=== PATIENT | male | born 1960 | race Caucasian/White ===

== ENCOUNTER 2017-04-02 22:55 | Emergency (ER) | payer SELFPAY ==
[~2017-04-02] VITALS: Ht 175.3 cm; Wt 99.8 kg
[2017-04-02] MEDS ORDERED: IV NORMAL SALINE 1000ML BAG 1,000 ML IV ONE (23:15)
--- NOTE | 2017-04-02 23:20 | PHYS DOC ---
Past Medical History Past Medical History: Seizure Past Surgical History: Other Additional Past Surgical Histo: cartaegna Alcohol Use: None Drug Use: None Adult General Chief Complaint Chief Complaint: SEIZURE HPI HPI Patient is a 56 year old male who presents to the emergency department for evaluation after having a seizure episode at home. Patient was brought to the emergency department by EMS after family called. The patient reportedly had a tonic-clonic seizure which lasted a few minutes. On EMS arrival, the patient continued to be confused and was presumed to be in a postictal state. Patient brought to the emergency department for further evaluation. EMS states that the family reports the patient has not taken medications "for a while." Patient has reported history of seizure. The patient continues to be confused at this time and does not provide any additional history. Patient denies any pain at this time. The patient is unaware of where he is but is able to recognize that he is in a hospital. Review of Systems Review of Systems Constitutional: Denies fever or chills [] Eyes: Denies change in visual acuity, redness, or eye pain [] HENT: Denies nasal congestion or sore throat [] Respiratory: Denies cough or shortness of breath [] Cardiovascular: Denies chest pain or edema[] GI: Denies abdominal pain, nausea, vomiting, bloody stools or diarrhea [] : Denies dysuria or hematuria [] Musculoskeletal: Denies back pain or joint pain [] Integument: Denies rash or skin lesions [] Neurologic: Denies headache, focal weakness or sensory changes [] Current Medications Current Medications Current Medications Medications (Trade) Dose Ordered Sig/Jennifer Start Time Stop Time Status Last Admin Dose Admin Phenytoin Sodium (Dilantin) 400 mg 1X ONCE 04/03/17 02:30 04/03/17 02:31 DC Sodium Chloride 1,000 ml @ 1,000 mls/hr 1X ONCE 04/02/17 23:15 04/03/17 00:14 DC 04/02/17 23:56 1,000 MLS/HR Allergies Allergies Allergies Coded Allergies Type Severity Reaction Last Updated Verified No Known Drug Allergies 04/02/14 No Physical Exam Physical Exam Constitutional: Alert, confused, afebrile, no acute distress. [] HENT: Normocephalic, atraumatic, bilateral external ears normal, oropharynx moist, no oral exudates, nose normal. [] Eyes: PERRLA, EOMI, conjunctiva normal, no discharge. [] Neck: Normal range of motion, no tenderness, supple, no stridor. [] Cardiovascular:Heart rate regular rhythm, no murmur [] Lungs & Thorax: Bilateral breath sounds clear to auscultation [] Abdomen: Bowel sounds normal, soft, no tenderness, no masses, no pulsatile masses. [] Skin: Warm, dry, no erythema, no rash. [] Back: No tenderness, no CVA tenderness. [] Extremities: No tenderness, no cyanosis, no clubbing, ROM intact, no edema. [] Neurologic: Alert, oriented to self only, normal motor function, normal sensory function, no focal deficits noted. [] Current Patient Data Vital Signs Vital Signs Date Time Temp Pulse Resp B/P (MAP) Pulse Ox O2 Delivery O2 Flow Rate FiO2 04/03/17 02:50 75 14 103/54 (70) 94 Room Air 04/02/17 23:14 98.3 98.3 Lab Values Laboratory Tests Test 04/02/17 23:12 04/02/17 23:45 04/03/17 00:59 Glucose (Fingerstick) 120 mg/dL (70-99) H White Blood Count 9.2 x10^3/uL (4.0-11.0) Red Blood Count 5.64 x10^6/uL (4.30-5.70) Hemoglobin 14.6 g/dL (13.0-17.5) Hematocrit 45.7 % (39.0-53.0) Mean Corpuscular Volume 81 fL (79-100) Mean Corpuscular Hemoglobin 26 pg (25-35) Mean Corpuscular Hemoglobin Concent 32 g/dL (31-37) Red Cell Distribution Width 14.5 % (11.5-14.5) Platelet Count 238 x10^3/uL (140-400) Neutrophils (%) (Auto) 61 % (31-73) Lymphocytes (%) (Auto) 28 % (24-48) Monocytes (%) (Auto) 10 % (0-9) H Eosinophils (%) (Auto) 1 % (0-3) Basophils (%) (Auto) 1 % (0-3) Neutrophils # (Auto) 5.6 x10^3uL (1.8-7.7) Lymphocytes # (Auto) 2.6 x10^3/uL (1.0-4.8) Monocytes # (Auto) 0.9 x10^3/uL (0.0-1.1) Eosinophils # (Auto) 0.1 x10^3/uL (0.0-0.7) Basophils # (Auto) 0.0 x10^3/uL (0.0-0.2) Sodium Level 138 mmol/L (136-145) Potassium Level 4.4 mmol/L (3.5-5.1) Chloride Level 102 mmol/L (98-107) Carbon Dioxide Level 29 mmol/L (21-32) Anion Gap 7 (6-14) Blood Urea Nitrogen 18 mg/dL (8-26) Creatinine 1.0 mg/dL (0.7-1.3) Estimated GFR (Cockcroft-Gault) 77.6 BUN/Creatinine Ratio 18 (6-20) Glucose Level 124 mg/dL (70-99) H Calcium Level 9.2 mg/dL (8.5-10.1) Magnesium Level 2.0 mg/dL (1.8-2.4) Total Bilirubin 0.4 mg/dL (0.2-1.0) Aspartate Amino Transferase (AST) 71 U/L (15-37) H Alanine Aminotransferase (ALT) 53 U/L (16-63) Alkaline Phosphatase 86 U/L (46-116) Total Protein 7.4 g/dL (6.4-8.2) Albumin 3.3 g/dL (3.4-5.0) L Albumin/Globulin Ratio 0.8 (1.0-1.7) L Phenytoin (Dilantin) Level < 10.0 mcg/mL (10.0-20.0) L Phenytoin Last Dose Date 04/02/17 Phenytoin Last Dose Time 0700 Urine Collection Type Unknown Urine Color Yellow Urine Clarity Cloudy Urine pH 6.0 Urine Specific [place] 1.025 Urine Protein 100 mg/dL (NEG-TRACE) Urine Glucose (UA) Negative mg/dL (NEG) Urine Ketones (Stick) Negative mg/dL (NEG) Urine Blood Negative (NEG) Urine Nitrite Negative (NEG) Urine Bilirubin Negative (NEG) Urine Urobilinogen Dipstick 1.0 mg/dL (0.2 mg/dL) Urine Leukocyte Esterase Negative (NEG) Urine RBC Occ /HPF (0-2) Urine WBC Occ /HPF (0-4) Urine Squamous Epithelial Cells Few /LPF Urine Bacteria 0 /HPF (0-FEW) Urine Hyaline Casts Few /HPF Urine Mucus Mod /LPF Urine Opiates Screen Pos (NEG) Urine Methadone Screen Neg (NEG) Urine Barbiturates Neg (NEG) Urine Phencyclidine Screen Neg (NEG) Urine Amphetamine/Methamphetamine Neg (NEG) Urine Benzodiazepines Screen Neg (NEG) Urine Cocaine Screen Neg (NEG) Urine Cannabinoids Screen Pos (NEG) Urine Ethyl Alcohol Neg (NEG) Laboratory Tests 04/02/17 23:45 Laboratory Tests 04/02/17 23:45 EKG EKG Rhythm strip interpretation by me: Heart rate 82, sinus rhythm, no ectopy[] Radiology/Procedures Radiology/Procedures Not performed[] Course & Med Decision Making Course & Med Decision Making Pertinent Labs and Imaging studies reviewed. (See chart for details) Patient's blood work was reviewed and unremarkable. Patient did test positive for marijuana and opiates. Patient admitted to taking oxycodone tablets prior to his onset of symptoms. The patient's Dilantin level was found to be unmeasurable which is consistent with the patient's history of noncompliance with medications. Patient was given 400 mg of oral Dilantin in the emergency department. The patient was prescribed for a 30 day supply of Dilantin to continue at home. Recommended follow-up with patient's primary doctor in the next 5-7 days for reevaluation. Advised return emergency department for any worsening symptoms. Patient voiced understanding and in agreement with treatment plan. Dragon Disclaimer Dragon Disclaimer This electronic medical record was generated, in whole or in part, using a voice recognition dictation system. Departure Departure Impression: Primary Impression: Seizure Disposition: HOME, SELF-CARE Condition: IMPROVED Referrals: NON,STAFF (PCP) Patient Instructions: Seizure, Adult Additional Instructions: Follow-up with your primary doctor in 5-7 days for reevaluation. Return to emergency department for any worsening symptoms. Scripts Phenytoin Sodium Extended (PHENYTOIN SODIUM EXTENDED) 200 Mg Capsule 200 MG PO TID, #90 CAP Prov: JEFF GOLDSMITH MD 04/03/17 JEFF GOLDSMITH MD Apr 02, 2017 23:20
[2017-04-03 00:39] LABS: BASO % 1 % (0-3); EOS % 1 % (0-3); HEMATOCRIT 45.7 % (39.0-53.0); HEMOGLOBIN 14.6 g/dL (13.0-17.5); LYMPH # 2.6 x10^3/uL (1.0-4.8); LYMPH % 28 % (24-48); MEAN CORPUSCULAR HEMOGLOBIN 26 pg (25-35); MEAN CORPUSCULAR HGB CONC 32 g/dL (31-37); MEAN CORPUSCULAR VOLUME 81 fL (79-100); MONO % 10 % (0-9); NEUT % 61 % (31-73); PLATELET COUNT 238 x10^3/uL (140-400); RED BLOOD COUNT 5.64 x10^6/uL (4.30-5.70); RED CELL DISTRIBUTION WIDTH 14.5 % (11.5-14.5); WHITE BLOOD COUNT 9.2 x10^3/uL (4.0-11.0)
[2017-04-03 00:49] LABS: ANION GAP 7 (6-14); BLOOD UREA NITROGEN 18 mg/dL (8-26); BUN/CREATININE RATIO 18 (6-20); CALCIUM 9.2 mg/dL (8.5-10.1); CARBON DIOXIDE 29 mmol/L (21-32); CHLORIDE 102 mmol/L (98-107); GFR 77.6; GLUCOSE 124 mg/dL (70-99); POTASSIUM 4.4 mmol/L (3.5-5.1); SODIUM 138 mmol/L (136-145)
[2017-04-03 00:54] LABS: ALBUMIN 3.3 g/dL (3.4-5.0); ALBUMIN/GLOBULIN RATIO 0.8 (1.0-1.7); ALK PHOS 86 U/L (46-116); ALT (SGPT) 53 U/L (16-63); AST (SGOT) 71 U/L (15-37); TOTAL BILIRUBIN 0.4 mg/dL (0.2-1.0); TOTAL PROTEIN 7.4 g/dL (6.4-8.2)
[2017-04-03 01:08] LABS: BILIRUBIN,URINE NEGATIVE (NEG); GLUCOSE,URINE NEGATIVE (NEG); NITRITE,URINE NEGATIVE (NEG); PROTEIN,URINE 100 mg/dL (NEG-TRACE)
[2017-04-03 01:13] LABS: BARBITURATES NEG (NEG); BENZODIAZEPINES NEG (NEG); CANNABINOIDS POS (NEG); COCAINE NEG (NEG); METHADONE NEG (NEG); OPIATES POS (NEG); PHENCYCLIDINE NEG (NEG)
[2017-04-03 01:27] LABS: BACTERIA,URINE 0 /HPF (0-FEW); RBC,URINE OCC /HPF (0-2); SQUAMOUS EPITHELIAL CELL,UR FEW /LPF; WBC,URINE OCC /HPF (0-4)
[2017-04-03] MEDS ORDERED: PHENYTOIN SODIUM EXTENDED 100 MG CAPSULE PO ONE (02:30)
[2017-04-03] MEDS ORDERED: PHEN200C3 PO (02:52)
[2017-04-03 03:50] VITALS: BP 111/68
== END 2017-04-03 04:10 | disposition home or self-care (01) ==
LOC: ER 22:55
DX: R56.9 Unspecified convulsions (principal)
CPT/HCPCS: 36415; 80053; 80185; 80307; 81001; 82962; 83735; 85025; 96360; 99284; J7030; G0479

== ENCOUNTER 2017-05-10 16:40 | Emergency (ER) | payer OTHER ==
[~2017-05-10] VITALS: Ht 274.3 cm; Wt 99.8 kg
[~2017-05-10 16:40] MED LIST: PHEN200C3 PO
[2017-05-10 16:51] VITALS: BP 135/79
[2017-05-10] MEDS ORDERED: CETI10TA22 PO (17:11)
[2017-05-10] MEDS ORDERED: MUPI15CR TP (17:11)
[2017-05-10] MEDS ORDERED: LEVE100020 PO (17:11)
[2017-05-10] MEDS ORDERED: TRIA15OI TP (17:11)
--- NOTE | 2017-05-10 17:11 | PHYS DOC ---
Past Medical History Past Medical History: Seizure Past Surgical History: Other Additional Past Surgical Histo: cartagena Alcohol Use: None Drug Use: Marijuana Adult General Chief Complaint Chief Complaint: INSECT BITE [facility] HPI Patient is a 57 year old male with history of seizures who presents today for refill for his seizure medicines. Patient states he takes Keppra but the last he was in the ED in March we gave him a wrong prescription- Dilantin. Patient is also complaining of bed bug rash on his chest and back for the last 1 month after being in a [facility]. He would like a cream for this. He states some of the rashes were draining pus. Review of Systems Review of Systems Constitutional: Denies fever or chills [] Eyes: Denies change in visual acuity, redness, or eye pain [] HENT: Denies nasal congestion or sore throat [] Respiratory: Denies cough or shortness of breath [] Cardiovascular: No additional information not addressed in HPI [] GI: Denies abdominal pain, nausea, vomiting, bloody stools or diarrhea [] : Denies dysuria or hematuria [] Musculoskeletal: Denies back pain or joint pain [] Integument: bug bug rash on the chest Neurologic: Refill for seizure medicines. Denies headache, focal weakness or sensory changes [] Allergies Allergies Allergies Coded Allergies Type Severity Reaction Last Updated Verified No Known Drug Allergies 04/02/14 No Physical Exam Physical Exam Constitutional: Well developed, well nourished, no acute distress, non-toxic appearance. [] HENT: Normocephalic, atraumatic, bilateral external ears normal, oropharynx moist, no oral exudates, nose normal. [] Eyes: PERRLA, EOMI, conjunctiva normal, no discharge. [] Neck: Normal range of motion, no tenderness, supple, no stridor. [] Cardiovascular:Heart rate regular rhythm, no murmur [] Lungs & Thorax: Bilateral breath sounds clear to auscultation [] Abdomen: Bowel sounds normal, soft, no tenderness, no masses, no pulsatile masses. [] Skin: Warm, dry, scattered areas of tiny open bug big wounds on his chest Back: No tenderness, no CVA tenderness. [] Extremities: No tenderness, no cyanosis, no clubbing, ROM intact, no edema. [] Neurologic: Alert and oriented X 3, normal motor function, normal sensory function, no focal deficits noted. Cranial nerves II-XII intact Psychologic: Affect normal, judgement normal, mood normal. [] Current Patient Data Vital Signs Vital Signs Date Time Temp Pulse Resp B/P (MAP) Pulse Ox O2 Delivery O2 Flow Rate FiO2 05/10/17 16:51 98.3 76 20 5 Room Air 98.3 EKG EKG [] Radiology/Procedures Radiology/Procedures [] Course & Med Decision Making Course & Med Decision Making Pertinent Labs and Imaging studies reviewed. (See chart for details) Patient is in the ED for refill of his seizure medicine. He states he takes Keppra but the last time he came to the ED in March we gave him Dilantin which is the wrong medicine. Gave him a prescription for Keppra. He is also complaining of a bed bug rash that he believes is infected. The rash does not appear infected. I did give him a prescription for Bactroban ointment as well as triamcinolone cream, recommended taking Zyrtec for the itching. I highly emphasized the importance of following up with a neurologist which patient got upset about stating we are talking to him as if he is child but he promised he will follow up with neurologist. Dragon Disclaimer Dragon Disclaimer This electronic medical record was generated, in whole or in part, using a voice recognition dictation system. Departure Departure Impression: Primary Impression: Medication refill Additional Impression: Insect bites Disposition: HOME, SELF-CARE Condition: STABLE Referrals: NO PCP (PCP) JONNATHAN SCHMITT MD followup on Saturday Patient Instructions: Bedbugs, Seizure, Adult Additional Instructions: We refilled your seizure medications. Please follow up with the neurologist provided or your neurologist as soon as possible. We sent you home with medications to help with the bed bug rashes. Use the medications as prescribed. Scripts Cetirizine Hcl (ZYRTEC) 10 Mg Tablet 1 TAB PO DAILY, #30 TAB 3 Refills Prov: JAIME DE ANDA ACQUISITION LEAD 05/10/17 Triamcinolone Acetonide (TRIAMCINOLONE ACETONIDE 0.1% OINT) 15 Gm Oint...g. 1 YAHAIRA TP TID for WOUND CARE, #1 TUBE Prov: LILAUNGAJAIME ACQUISITION LEAD 05/10/17 Mupirocin Calcium (BACTROBAN CREAM) 15 Gm Cream..g. 1 YAHAIRA TP TID, #30 GM Prov: JAIME DE ANDA APRN 05/10/17 Levetiracetam (KEPPRA) 1,000 Mg Tablet 1 TAB PO BID, #60 TAB 0 Refills Prov: JAIME DE ANDA APRN 05/10/17 Problem Qualifiers Additional Impression: Insect bites Encounter type: initial encounter Qualified Codes: W57.XXXA - Bitten or stung by nonvenomous insect and other nonvenomous arthropods, initial encounter JAIME DE NADA APRN May 10, 2017 17:11
== END 2017-05-10 17:16 | disposition home or self-care (01) ==
LOC: ER 16:40
DX: Z76.0 Encounter for issue of repeat prescription (principal); S20.369A Insect bite (nonvenomous) of unspecified front wall of thorax, initial encounter; S30.860A Insect bite (nonvenomous) of lower back and pelvis, initial encounter; R56.9 Unspecified convulsions; W57.XXXA Bitten or stung by nonvenomous insect and other nonvenomous arthropods, initial encounter; Y93.89 Activity, other specified; Y99.8 Other external cause status; Y92.89 Other specified places as the place of occurrence of the external cause
CPT/HCPCS: 99283

== ENCOUNTER 2021-04-02 12:13 | Emergency (ER) | payer MEDICAID, OTHER ==
[~2021-04-02] VITALS: Ht 175.3 cm; Wt 95.0 kg
[~2021-04-02 12:13] MED LIST changes: +CETI10TA74 PO; +LEVE100020 PO; +MUPI15CR TP; +TRIA15OI TP
[2021-04-02 12:20] VITALS: BP 135/67
[2021-04-02] MEDS ORDERED: CEPH500T PO (12:40)
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
== END 2021-04-02 12:50 | disposition home or self-care (01) ==
LOC: ER 12:13
DX: L03.114 Cellulitis of left upper limb (principal); F17.200 Nicotine dependence, unspecified, uncomplicated
CPT/HCPCS: 99283